=== PATIENT | female | born 1995 | race Caucasian/White ===

== ENCOUNTER 2018-09-15 20:14 | Emergency (ER) | payer SELFPAY ==
--- NOTE | 2018-09-15 20:24 | Emergency Department Report ---
Chief Complaint: Vaginal Bleeding Stated Complaint: IMPLANTATION BLEEDING DIZZINESS Time Seen by Provider: 09/15/18 20:21 - HPI History of Present Illness: pt presents with vaginal spotting that began 4 days no urinary sx, no N/V, no fever LNMP: 08/21/18 /P:2/A:1 has not taken a test no PMHx MSE screening note: Focused history and physical exam performed. Due to findings the following was ordered: UA, urine preg ED Disposition for MSE Condition: Stable
[2018-09-15 20:26] VITALS: BP 127/78
[2018-09-15 22:00] LABS: Bacteria,Urine 1+ /HPF (Negative); Bilirubin,Urine NEG (Negative); Blood,Urine LG (Negative); Color,Urine Yellow (Yellow); Mucus,Urine 2+ /HPF; Protein,Urine <15 mg/dL mg/dL (Negative); Urobilinogen,Urine < 2.0 mg/dL (<2.0)
[2018-09-15 22:03] LABS: HCG Qualitative,Urine Negative (Negative)
== END 2018-09-15 23:30 | disposition left against medical advice (07) ==
LOC: ED 20:14
DX: R42 Dizziness and giddiness (principal); Z53.21 Procedure and treatment not carried out due to patient leaving prior to being seen by health care provider
CPT/HCPCS: 81001; 81025